=== PATIENT | female | born 2005 | race Caucasian/White ===

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

== ENCOUNTER 2023-02-08 15:45 | Emergency (ER) | payer OTHER, SELFPAY ==
[2023-02-08 15:58] VITALS: BP 96/58; PULSE 52; RESP 16; TEMP 36.4; O2SAT 100
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
== END 2023-02-08 16:58 | disposition left against medical advice (07) ==
PROVIDERS: Emergency Provider Nurse Practitioner Family
DX: R51.9 Headache, unspecified (principal); F41.9 Anxiety disorder, unspecified; F31.9 Bipolar disorder, unspecified
CPT/HCPCS: 99211; G0463

== ENCOUNTER 2023-04-15 10:45 | Emergency (ER) | payer OTHER, SELFPAY ==
--- NOTE | 2023-04-15 10:58 | ED.GENADULT ---
HPI - General Adult General Chief complaint: Nausea/Vomiting/Diarrhea Stated complaint: nausea,stomach cramping Time Seen by Provider: 04/15/23 10:58 Source: patient, RN notes reviewed and old records reviewed Mode of arrival: ambulatory Limitations: no limitations History of Present Illness HPI narrative: 17-year-old female presents to the [facility] with complaints of nausea and stomach cramps since Saturday, 2 days. Patient reports she vomited 1 time on Saturday. No vomiting since. Has had some nausea. Has taken Pepto with improvement of symptoms. Denies any actual abdominal pain. No chest pain. Thinks that she has food poisoning. Last menstrual period was 1 week ago. Related Data Home Medications Medication Instructions Recorded Confirmed escitalopram oxalate 20 mg tablet 20 mg PO DAILY 05/28/22 04/15/23 lamotrigine 100 mg tablet 100 mg PO DAILY 05/28/22 04/15/23 Allergies Allergy/AdvReac Type Severity Reaction Status Date / Time No Known Allergies Allergy Verified 02/08/23 16:01 Review of Systems Review of Systems: All systems reviewed & are unremarkable except as noted in HPI and below Constitutional: Constitutional: Reports no additional constitutional complaints Eyes: Eyes: Reports no additional eye complaints ENT: Reports system reviewed and no additional complaints, except as documented Cardiovascular: Cardiovascular: Reports no additional cardiovascular complaints, Denies chest pain and Denies dyspnea Respiratory: Respiratory: Reports no additional respiratory complaints, Denies chest congestion, Denies cough and Denies dyspnea Gastrointestinal: Gastrointestinal: Reports as per HPI, Denies abdominal pain, Reports nausea and Reports vomiting Musculoskeletal: Musculoskeletal: Reports no additional musculoskeletal complaints Integumentary/Breasts: Skin/Breast: Reports system reviewed and no additional complaints, except as docu Neurologic: Reports system reviewed and no additional complaints, except as documented Psychiatric: Psychiatric: Reports no additional psychiatric complaints Allergic/Immunologic: Allergic/Immunologic: Reports no additional allergic/immunologic complaints PMFSH Past Medical History Medical History No pertinent past medical history Comments At the time of my signature, I reviewed and agree with the nursing past medical, surgical, social, and family history. There is no relevant family history pertinent to the patient complaint. Exam Const: General: cooperative, healthy appearing, comfortable, no acute distress, well developed, alert and well nourished Nutritional Appearance: well nourished Orientation/consciousness: patient oriented x3 Limitations: no limitations HENMT: Head: normal to inspection Ears: hearing grossly normal bilaterally and external ears normal Face/Nose/Sinus: Normal external nose present, Normal nares present, Normal nasal mucous membranes and turbinates present, normal facial exam and face symmetric Face and sinus: normal facial exam and face symmetric Mouth: Yes Normal oral and palatal mucosa present, Yes lip normal and Yes moist mucous membranes Throat: posterior oropharynx normal and uvula midline Eyes: General: appearance normal, both eyes and all related structures Alignment and Position: alignment normal Periorbital: periorbital findings normal Pupils: Equal, round and reactive pupils present EOM: EOMs intact bilaterally Neck: Neck: normal visual inspection, full ROM, no lymphadenopathy and no meningeal signs Chest: Chest palpation & inspection: normal inspection of the chest Resp: Effort & Inspection: normal respiratory effort and able to speak in complete sentences Auscultation: clear to auscultation bilaterally, no crackles, no rales, no rhonchi and no wheezes Cardio: Rate: regular rate Rhythm: regular rhythm GI: GI Palp: No abdominal tenderness and Yes Soft to palpation A
[2023-04-15 11:00] VITALS: BP 90/52; PULSE 62; RESP 16; TEMP 36.4; O2SAT 100
[2023-04-15 11:01] VITALS: BP 90/52; PULSE 62; RESP 16; TEMP 36.4; O2SAT 100
== END 2023-04-15 11:13 | disposition home or self-care (01) ==
PROVIDERS: Emergency Provider Nurse Practitioner
DX: K52.9 Noninfective gastroenteritis and colitis, unspecified (principal); Z79.899 Other long term (current) drug therapy
CPT/HCPCS: 87804; 99213; G0463

== ENCOUNTER 2023-07-17 11:12 | Emergency (ER) | payer OTHER, SELFPAY ==
--- NOTE | ~2023-07-17 | US_ITS ---
EXAMINATION: US pelvic complete DATE: 07/17/2023 13:28 INDICATION: Adnexal pain TECHNIQUE: Multiple transabdominal and endovaginal sonographic images of the pelvis were obtained. COMPARISON: None. FINDINGS: The uterus measures 4.4 x 2.2 x 4.4 cm. The endometrial complex measures 6-7 mm in thickness. The ri ght ovary measures 3.4 x 2.3 x 2.3 cm. The left ovary measures 5.5 x 2.7 x 4.3 cm. There are few smal l anechoic follicles at both ovaries. There is a larger 3.0 x 2.6 cm cyst/dominant follicle at the le ft ovary. Vascular flow is identified in both ovaries on color Doppler. There is a minimal amount of likely physiologic free fluid along the right adnexa. IMPRESSION: 1. Vascular flow identified on color Doppler in both ovaries with a few bilateral Kathryn ovarian f ollicles and 3.0 cm cyst/dominant follicle at the left ovary. Reviewed, dictated and finalized at location A. COMMUNICATION TOWER TECHNICIAN IMPRESSION: 1. Vascular flow identified on color Doppler in both ovaries with a few bilater al Kathryn ovarian follicles and 3.0 cm cyst/dominant follicle at the left ov bridget.
--- NOTE | ~2023-07-17 | CT_ITS ---
EXAMINATION: CT abdomen pelvis w con DATE: 07/17/2023 14:47 INDICATION: Right lower quadrant abdominal pain. TECHNIQUE: Computed tomography (CT) of the abdomen and pelvis was performed with 100 mL Omnipaque 350 intravenous contrast. Automated exposure control and iterative reconstruction technique were employe d. The dose-length product was 216.64 mGy-cm. COMPARISON: Ultrasound pelvis 07/17/2023 FINDINGS: The visualized portions of the lung bases are clear without pneumonia or pleural effusion. The heart size is normal. No pericardial effusion. The liver, gallbladder, spleen, pancreas, adrenal glands, and kidneys are normal. There are no dilated loops of bowel. The appendix is normal. There is physiologic fluid in the pelvis. There is a 2.7 cm dominant follicle in left ovary. There are no pat hologically enlarged lymph nodes. The bones are unremarkable. IMPRESSION: 1. No etiology for the patient's symptoms. Reviewed, dictated and finalized at location E. CIPAL CONSULTANT
[2023-07-17 11:15] VITALS: BP 134/78; PULSE 73; RESP 18; TEMP 36.6; O2SAT 97
--- NOTE | 2023-07-17 11:37 | PC.NURSE ---
Per pt, last Menstrual period started 06/28, has been heavy until 07/15/23, and now is light in blood.
--- NOTE | 2023-07-17 12:03 | ED.GENADULT ---
HPI - General Adult General Chief complaint: Unspecified Stated complaint: endemetriosis hurts Time Seen by Provider: 07/17/23 12:02 History of Present Illness HPI narrative: Patient is a 17 year old female here with nausea and abdominal pain. Waxes and wanes, severe, non radiating, feels like severe abdominal cramps but has never really struggled with cramps with her periods. She had similar symptoms about 1 year ago which self resolved. She notes she had seen an OBGYN in the past who recommended workup for likely endometriosis however she moved before being able to complete this so she does not have a formal diagnoses. She has had vaginal bleeding since 06/28, waxes and wanes in strength and color, typically only has a 5 day period so this is abnormal for her. Of note in March 2022 she had a D&E at 20ish weeks, both of these episodes of pain have occurred since that time. No dysuria, no fever, no chills, no vaginal discharge, no control use for the last 1 year. No history of STI, 1 sexual partner, no concern for STI. Related Data Home Medications Medication Instructions Recorded Confirmed escitalopram oxalate 20 mg tablet 20 mg PO DAILY 05/28/22 04/15/23 lamotrigine 100 mg tablet 100 mg PO DAILY 05/28/22 04/15/23 Allergies Allergy/AdvReac Type Severity Reaction Status Date / Time No Known Allergies Allergy Verified 02/08/23 16:01 Review of Systems Review of Systems: All systems reviewed & are unremarkable except as noted in HPI and below PMFSH Past Medical History Medical History No pertinent past medical history Exam Narrative: GENERAL: Well-appearing, well-nourished, and in no acute distress. HEAD: Normocephalic, atraumatic. EYES: PERRLA and EOMI. ENT: Nares clear. Mucous membranes moist. NECK: Supple. CHEST: Clear to auscultation. No respiratory distress. HEART: Regular rate and rhythm. Normal peripheral pulses. ABDOMEN: Soft, suprapubic and RLQ tenderness, no rebound or guarding. BL CVA tenderness, nondistended. : deferred EXTREMITIES: Normal range of motion. No edema. SKIN: Warm, dry, no rash. NEURO: No focal deficits. Alert and oriented x3. PSYCH: Normal mood and affect. Course Course Emergency Course: Chart review performed. Patient here with endometriosis pain. Triage vitals within normal limits. She has a couple prior urgent care visits in our system for nausea, vomiting, last in April of this year. Patient seen and evaluated, non toxic appearing, RLQ pain and suprapubic pain, abnormal vaginal bleeding. Negative test here, unlikely ectopic . Will do UA, basic lab work, pain control, pelvic US. Should pelvic US be negative, will do CT abdomen pelvis, kidney stone and appendicitis less likely. Lab work and imaging reviewed, no leukocytosis, CMP within normal limits, normal LFTs, normal renal function. UA negative for UTI and negative. US shows cysts on bilateral ovaries, larger on the left, good flow to BL ovaries. She does have some free fluid along right adnexa. Suspect she may have had a cyst rupture on the right however will do CT abdomen pelvis to ensure appendix appears normal. Patient re-evaluated, felt better after morphine, getting more pain again, will give dose of toradol. Advised Tylenol, ibuprofen and close follow-up with primary care doctor and OBGYN. Given referrals for the on-call providers for both of these specialties should she need them. The results of pertinent diagnostic studies and exam findings were discussed. The patient?s provisional diagnosis and plan of care were discussed with the patient and present family. The patient and/or present family expressed understanding of the diagnosis and plan. The nurse was instructed to provide written instructions and appropriate follow-up information. The patient understands their need and responsibility to obtain additional follow-up as instr
[2023-07-17 12:26] LABS: Appearance Urine Clear (Clear); Bilirubin Urine Negative (Negative); Blood Urine Negative (Negative); Color Urine Yellow (Yellow); Glucose Urine UA Negative (Negative); Ketones Urine Negative (Negative); Leukocyte Esterase Ur Negative LEU/UL (Negative); Nitrate Urine Negative (Negative); Protein Urine Negative (Negative); Specific Grav Ur 1.005 (1.001-1.035); Urobilinogen Urine 0.2 mg/dL (<2.0)
[2023-07-17 12:29] LABS: Add Urine Microscopic? NO
[2023-07-17] MEDS: ONDANSETRON INJ 4 MG/2 ML VIAL IV PUSH (12:58)
[2023-07-17] MEDS: MORPHINE SULFATE (*CRX) 4 MG/ML INJ IV PUSH (12:59)
[2023-07-17 13:07] LABS: Basophils Percent Auto 0.7 % (0.2-1.2); Eosinophils Absolute Auto 0.2 K/mm3 (0-0.3); Eosinophils Percent Auto 3.9 % (0-4.4); Hematocrit 38.7 % (37.0-47.0); Hemoglobin 12.6 g/dL (12.0-15.0); Immature Granulocyte Absolute 0.01 K/mm3 (0.00-0.031); Immature Granulocyte Percent A 0.2 % (0-0.5); Lymphocytes Absolute Auto 2.11 K/mm3 (0.9-3.2); Lymphocytes Percent Auto 35.9 % (18.3-44.2); Mean Corpuscular HGB Conc 32.6 g/dl (32-36); Mean Corpuscular Hemoglobin 30.4 pg (26-34); Mean Corpuscular Volume 93.3 fl (80-100); Mean Platelet Volume 9.8 fl (7.4-10.4); Monocytes Absolute Auto 0.3 K/mm3 (0.1-0.6); Monocytes Percent Auto 5.8 % (2.6-8.5); Neutrophils Absolute Auto 3.1 K/mm3 (1.3-6.7); Neutrophils Percent Auto 53.5 % (45.5-73.1); Platelet Count Result 335 k/mm3 (150-375); Red Blood Count 4.15 M/mm3 (4.2-5.4); Red Cell Distribution Width 13.2 % (11.5-14.5); White Blood Count 5.9 K/mm3 (4.5-10.0)
[2023-07-17 13:18] LABS: Alanine Aminotransferase 20 U/L (6-35); Albumin Level 4.3 g/dL (3.7-5.6); Alkaline Phosphatase 65 U/L (45-116); Anion Gap 9 mmol/L (8-16); Aspartate Amino Transferase 29 U/L (14-36); Bilirubin,Total 1.2 mg/dL (0.2-1.3); Blood Urea Nitrogen 9 mg/dL (8-21); Calcium 9.2 mg/dL (8.9-10.7); Carbon Dioxide 24 mmol/L (22-30); Chloride 108 mmol/L (98-107); Estimated CRCL calculation 131 ml/min; Estimated Glomerular Filt Rate > 60; Glucose 91 mg/dL (65-110); Lipase 48 U/L (23-300); Potassium 4.3 mmol/L (3.4-5.0); Sodium 141 mmol/L (134-143)
[2023-07-17 15:10] VITALS: BP 110/68; PULSE 53; RESP 20; O2SAT 100
[2023-07-17] MEDS: KETOROLAC 15 MG/ML VIAL (*BKC) IV PUSH (15:51)
== END 2023-07-17 15:58 | disposition home or self-care (01) ==
PROVIDERS: Emergency Provider Student in an Organized Health Care Education/Training Program
DX: N83.02 Follicular cyst of left ovary (principal); N83.01 Follicular cyst of right ovary; N93.8 Other specified abnormal uterine and vaginal bleeding
CPT/HCPCS: 36415; 74177; 76856; 80053; 81003; 81025; 83690; 85025; 96374; 96375; 99284; J1885; J2270; J2405; Q9967

== ENCOUNTER 2023-12-06 11:24 | Outpatient (CLI) | payer OTHER, SELFPAY ==
[2023-12-06 12:07] LABS: Hematocrit 38.7 % (37.0-47.0); Hemoglobin 12.6 g/dL (12.0-15.0); Mean Corpuscular HGB Conc 32.6 g/dl (32-36); Mean Corpuscular Hemoglobin 30.8 pg (26-34); Mean Corpuscular Volume 94.6 fl (80-100); Mean Platelet Volume 10.5 fl (7.4-10.4); Platelet Count Result 253 k/mm3 (150-375); Red Blood Count 4.09 M/mm3 (4.2-5.4); Red Cell Distribution Width 13.6 % (11.5-14.5); White Blood Count 6.3 K/mm3 (4.5-10.0)
== END 2023-12-06 11:25 | disposition home or self-care (01) ==
LOC: ANHSURGERY 11:31
PROVIDERS: PCP Family Medicine; Visit Provider Student in an Organized Health Care Education/Training Program
DX: Z01.818 Encounter for other preprocedural examination (principal); R10.2 Pelvic and perineal pain; N70.11 Chronic salpingitis
CPT/HCPCS: 36415; 85027; 86850; 86900; 86901

== ENCOUNTER 2023-12-13 01:20 | Day surgery (SDC) | payer OTHER, SELFPAY ==
[2023-12-06 08:46] VITALS: BMI 19.3
--- NOTE | 2023-12-06 08:53 | PC.NURSE ---
Report to the Outpatient Waiting Room, entrance under the green pavilion located off [facility], at time _1000_ on date _[id number]_. Planned Procedure Time: _1200_. Time changes happen often and if your time is changed the preop area will call you the afternoon before. - You and your visitor will be asked to self-screen and do not enter if you have any COVID symptoms. - A mask is optional within the hospital at this time. Patients may have clear liquids (water, carbonated beverages, clear teas, apple juice) until 3 hours prior to surgery with a maximum of 20 ounces. - No food from midnight until time of surgery Take the following medications with a SIP of water the morning of surgery: ___None DO NOT STOP ANY OF YOUR OTHER PRESCRIPTION MEDICATIONS PRIOR TO SURGERY ?EXCEPT THE FOLLOWING Medications to discontinue per physician None Date to take last dose Please no make-up, nail brazilian, hairspray, perfume, deodorant, or body powder the day of surgery. No jewelry (including any body piercings) or valuables the day of surgery, leave them at home. Please take a shower or bath the night before, or the morning of, surgery with an antibacterial soap. Wear comfortable, loose fitting clothing. - Jewelry must be removed prior to entering the operating room. Rings and piercings that are not removed may be cut off. - The hospital will not accept responsibility for valuables. - Please leave all valuables, including medications, at home the day of surgery. If you are going home after surgery, a licensed car pick up driver must drive you home. - NO public transportation without another adult if you receive anesthesia. - We recommend that an adult stay with you for 24 hours following discharge. - We also recommend that you do not drive, make important decision, drink alcoholic beverages, or take any drugs that were not prescribed by your health care provider for at least 24 hours after your discharge time. Follow any additional instructions given to you from your surgeon. If you or anyone in your household have experienced Covid symptoms in the past week, please notify your surgeon or the nurse liaison at the phone number below for possible testing. Telephone instructions given to _Des___and asked if any additional questions and then verbalized understanding. Patient advised to call surgeon office or pre surgery nurse liaison [phone] if any additional questions.
[2023-12-13] VITALS (8 sets, daily range): BP systolic 96–141; BP diastolic 56–97; PULSE 60–80; RESP 14–21; TEMP 36.3–36.6; O2SAT 99–100
--- NOTE | 2023-12-13 09:31 | PM.IMHP ---
H&P: HPI History of Present Illness Date/Time: 12/13/23 09:31 Chief Complaint: pelvic pain hydrosalpinx Narrative: 18-year-old female who presents Diagnostic laparoscopy for pelvic pain and suspected left hydrosalpinx.? Patient was last seen with complaint of intermittent pelvic pain.? Patient has been dealing with pelvic pain for some time patient initially presented to the emergency room in July after an acute episode of pelvic pain.? Patient had a CT scan and a pelvic ultrasound.? Patient was known to have a left ovarian cyst.? Follow-up pelvic ultrasound in our office showed a left hydrosalpinx.? Patient was complaining of vaginal discharge at initial visit.? Patient denies any known history of STDs.? Patient does reports an elective in 2021. patient states was performed with medicine and denies any D and C or pelvic surgery. Review of Systems Cardiovascular: Cardiovascular: Denies chest pain, Denies leg edema, Denies palpitations, Denies dyspnea and Denies dyspnea on exertion Respiratory: Respiratory: Denies cough, Denies dyspnea and Denies dyspnea on exertion Gastrointestinal: Gastrointestinal: Denies abdominal pain, Denies constipation, Denies diarrhea, Denies nausea and Denies vomiting Genitourinary: Genitourinary: Denies hematuria, Denies urinary frequency, Denies dysuria, Denies pelvic pain, Denies urinary incontinence and Denies vaginal discharge Neurologic: Reports system reviewed and no additional complaints, except as documented Psychiatric: Psychiatric: Reports no additional psychiatric complaints Endocrine: Endocrine: Denies palpitations PMFSH Past Medical History Medical History No pertinent past medical history Ovarian cyst Pelvic inflammatory disease Family History Family History Mother Depression Father Family history of bipolar disorder Grandparent Family history of chronic obstructive pulmonary disease Social History Social History Smoking status: Light tobacco smoker Tobacco type: e-cigarettes/vaping Second hand tobacco smoke exposure: Yes Alcohol intake: never Substance use: current Substance use type: marijuana Other substance usage details: Medical marijuana 3 times a day. Do You Feel Safe in your Home?: Yes Lack of Transportation: No Lack of Food: Never True Current Housing: I Have Housing Concerned About Future Housing: No Difficulty Paying Gas/Electric Bills: No Currently Unemployed: No Education: Trade/Vocational Certificate Difficulty w/ Childcare or Family Care: No Living arrangements: with family Occupation/Education: occupation Gender identity (if verbalized by the patient): Female Sexual Orientation (if Verbalized by the Patient): Straight or Heterosexual Spiritual care concerns: No Meds Home Medications and Allergies Home Medications Medication Instructions Recorded Confirmed Type No Home Medications 12/06/23 12/06/23 History Allergies Allergy/AdvReac Type Severity Reaction Status Date / Time acetaminophen AdvReac Mild Nausea and Verified 12/06/23 08:46 Vomiting Exam Const: General: no acute distress Eyes: EOM: EOMs intact bilaterally Neck: Neck: supple Thyroid: thyroid normal Chest: Breast/axilla inspection: normal inspection of the breasts Breast/axilla palpation: normal palpation of the breasts, normal palpation of the axillae and no axillary lymphadenopathy Resp: Effort & Inspection: normal respiratory effort Auscultation: clear to auscultation bilaterally Cardio: Rate: regular rate Rhythm: regular rhythm GI: Inspection: non-distended GI Palp: Yes Soft to palpation, No Tenderness to palpation present (GI) and No Guarding due to palpation present (GI) Auscultation: normal bowel sounds : General: No blad
[2023-12-13] MEDS: LACTATED RINGERS 1,000 ML 30 ML IV CONT ×2 (12:00→15:26)
--- NOTE | 2023-12-13 13:13 | P.PNAN_ITS ---
Anes - Initial Pre Proc Eval Procedure: Operation Date: 12/13/23 13:30 Proposed Procedures p Diagnostic Laparoscopy, Possible Left Laparoscopic Salpingectomy, Possible Left Ovarian Cystectomy - Nixon Tejeda MD Date/Time: 12/13/23 13:13 Surgeon: Nixon Tejeda MD Pre Op Diagnosis: pelvic pain Patient Data Age: 18 Gender: F Height: 1.73 m Weight: 50.5 kg Last Vital Signs Temp 36.6 C 12/13/23 12:18 Pulse 76 12/13/23 12:18 Resp 16 12/13/23 12:18 BP 96/63 L 12/13/23 12:18 Pulse Ox 99 12/13/23 12:18 O2 Del Method Room Air 12/13/23 12:18 Allergies Allergy/AdvReac Type Severity Reaction Status Date / Time acetaminophen AdvReac Mild Nausea and Verified 12/13/23 11:51 Vomiting Home Medications Medication Instructions Recorded Confirmed Type No Home Medications 12/06/23 12/06/23 History Patient hx anesthesia problems: none Family hx anesthesia problems: none Results Review: All pre-operative results and documents have been reviewed as part of the pre- operative evaluation. [facility] Past Medical History Medical History No pertinent past medical history Ovarian cyst Pelvic inflammatory disease Family History Family History Mother Depression Father Family history of bipolar disorder Grandparent Family history of chronic obstructive pulmonary disease Social History Social History Smoking status: Light tobacco smoker Tobacco type: e-cigarettes/vaping Second hand tobacco smoke exposure: Yes Alcohol intake: never Substance use: current Substance use type: marijuana Other substance usage details: Medical marijuana 3 times a day. Do You Feel Safe in your Home?: Yes Lack of Transportation: No Lack of Food: Never True Current Housing: I Have Housing Concerned About Future Housing: No Difficulty Paying Gas/Electric Bills: No Currently Unemployed: No Education: Trade/Vocational Certificate Difficulty w/ Childcare or Family Care: No Living arrangements: with family Occupation/Education: occupation Gender identity (if verbalized by the patient): Female Sexual Orientation (if Verbalized by the Patient): Straight or Heterosexual Spiritual care concerns: No Anes - Eval Final PreProcedure Day of Procedure 12/13/23 13:13 Patient weight: normal Heart: regular rate and rhythm Lungs: clear to auscultation Airway: Mallampati scale class II and special considerations poor dentition Neurological: alert and oriented Last oral intake: >/= 8 hours ASA classification: III Emergent: no Anesthetic plan: proceed Anesthesia type and monitoring: general ETT and standard monitoring Results Review: All pre-operative results and documents have been reviewed as part of the pre- operative evaluation. Informed Consent: The patient's anesthetic plan and its attendant risks and benefits were discussed with the patient/family/POA. Questions were solicited and answers provided to the satisfaction of the patient/family/POA.
[2023-12-13] MEDS: KETOROLAC 15 MG/ML VIAL (*BKC) IV PUSH (13:23)
--- NOTE | 2023-12-13 14:23 | WPDHPUPDATE1 ---
History and Physical Update Update Date/Time: 12/13/23 14:23 History and Physical has been reviewed, including an updated exam of the patient. There are NO changes in the patient's condition. Risks, benefits, and alternatives have been discussed and questions answered. Patient agrees to proceed with procedure.
--- NOTE | 2023-12-13 14:27 | WPDHPUPDATE1 ---
History and Physical Update Update Date/Time: 12/13/23 14:27 History and Physical has been reviewed, including an updated exam of the patient. There are NO changes in the patient's condition. Risks, benefits, and alternatives have been discussed and questions answered. Patient agrees to proceed with procedure.
--- NOTE | 2023-12-13 14:29 | WPDHPUPDATE1 ---
History and Physical Update Update Date/Time: 12/13/23 14:29 History and Physical has been reviewed, including an updated exam of the patient. There are NO changes in the patient's condition. Risks, benefits, and alternatives have been discussed and questions answered. Patient agrees to proceed with procedure.
[2023-12-13] MEDS: LIDO 1%/EPINEPHRINE 1:100,000 50 ML VIAL 14 ML INFILTRATE (15:10)
--- NOTE | 2023-12-13 15:17 | P.OP_ITS ---
Procedure Note - Detailed Date of Procedure 12/13/23 Pre-op Diagnosis pelvic pain left hydrosalpinx Post-op Diagnosis Same Procedure Performed diagnostic laparoscopy, left salpingectomy Surgeon Nixon Tejeda MD Anesthesia General Indications pelvic pain hydrosalpinx on US Findings dilated left fallopian tube, enlarged fluid filled cyst at the fimbriated end of the left fallopian tube normal appearing uterus, bilateral ovaries right fallopian tube normal in appearance Description of Procedure The patient was taken to the operating room where general endotracheal anesthesia was undertaken and found to be adequate. She was then prepped and draped in the dorsal lithotomy position and placed in adjustable stirrups. A pre-operative team brief and a time out were completed. A catheter was placed to drain the bladder. Retractors were placed placed in the vagina and the cervix was identified. An acorn uterine manipulator was placed. A 5 mm skin incision was made in the umbilicus. A 5 mm optical trocar was then placed with direct camera visualization of the abdominal layers during placement. The trocar stylet was removed and the camera was used to verify intra-abdominal placement. CO2 insufflation was then connected and resumed. The pelvis was inspected. A left lower quadrant 5 mm port was placed, in addition to a right lower quadrant 5 port in the standard fashion after using local anesthetic. Pelvic survey was performed and the above findings were noted. The dilated left fallopian tube and cyst were transected. The fallopian tube was transected near the uterine corpus using the ligasure device. This transection was continued along the mesosalpinx. The fallopian tube and cyst were removed off the left ovary. The cyst was inadvertently ruptured when transecting it off of the ovarian capsule. Clear fluid was spilled from the cyst. The umbilical port site was converted to a 10-12 mm port. A laparoscopic endopouch was introduced. The specimen was placed within the bag and removed from the abdomen through the umbilical port. The surgical field was thoroughly irrigated using normal saline. All surgical beds were noted to be hemostatic. The umbilical fascial incision was re-approximated with 0-vicryl using a Erasmo- Berenice device. The abdomen was relieved of all CO2 gas. All remaining trocars were removed from the abdomen. Sponge, lap and needle counts were correct. All skin incisions were closed with 4-0 Vicryl suture subcuticularly. The uterine manipulator was removed from the uterus. Hemostasis of the cervix was noted. The urinary catheter was removed. The patient was taken out of dorsal lithotomy position. Anesthesia was reversed. The patient was taken to the PACU. Estimated Blood Loss 25 Urine Output 100 Drains No Packing No Pathology Yes (left fallopian tube and cyst) Complications No immediate complications Condition Stable Disposition PACU [facility] Billing Surgery - Charge Forward: Surgery Billing
[2023-12-13] MEDS: oxyCODONE HCL (*CRX) 5 MG TAB IR PO (16:11)
== END 2023-12-13 17:00 | disposition home or self-care (01) ==
PROVIDERS: PCP Family Medicine; Visit Provider Student in an Organized Health Care Education/Training Program
PROC: (CPT 49320; principal; 2023-12-13 13:30)
DX: N70.11 Chronic salpingitis (principal); F17.290 Nicotine dependence, other tobacco product, uncomplicated; F12.90 Cannabis use, unspecified, uncomplicated
CPT/HCPCS: 58661; 36415; 85027; 86850; 86900; 86901; 88302; A9270; J1100; J1885; J2250; J2405; J2704; J3010; J7030; J7120

== ENCOUNTER 2024-08-21 04:53 | Emergency (ER) | payer OTHER, SELFPAY ==
[2024-08-21 04:53] VITALS: BP 130/77; PULSE 99; RESP 16; TEMP 36.9; O2SAT 100
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
--- OUTSIDE RECORDS SUMMARY | 2024-08-21 04:58 | XMS_ITS | Clinical Summary ---
Author Organization [facility] Address [address] [place] [address] Care Team Providers Care Acid Loader Name Role Phone None, Provider MD Primary Care Provider Unavaila ble Allergies No known active allergies Medications lamoTRIgine 25 MG tablet Take 25 mg by mouth daily. Active ( VITAMINS) 28-0.8 MG tablet Take 1 tablet by mouth daily. 30 tablet 2 Active ondansetron (ZOFRAN-ODT) 4 MG disintegrating tablet Take 1 tablet (4 mg total) by mouth every 8 (eight) hours as needed for Nausea. 20 tablet 2 Active Social History Tobacco Use Types Packs/Day Years Used Date Smoking Tobacco: Never Smokeless Tobacco: Never Alcohol Use Standard Drinks/Week Comments Not Currently 0 (1 standard drink = 0.6 oz pur e alcohol) Comments No Sex and Gender Information Value Date Recorded Sex Assigned at Female 07/30/2021 8:29 PM ASSOCIATE PROFESSOR OF MEDICINE Legal Sex Female 5:00 PM CDT Gender Identity Female 07/30/2021 8:29 PM ASSOCIATE PROFESSOR OF MEDICINE Sexual Orientation Bisexual 07/30/2021 8: 29 PM ASSOCIATE PROFESSOR OF MEDICINE Last Filed Vital Signs Vital Sign Reading Time Taken Comments Blood Pressure 123/82 03/27/2022 4:30 AM CDT Pulse 102 03/27/2022 2:29 AM CDT Temperature 36.1 C (96.9 F) 03/27/2022 2:29 AM CDT Respiratory Rate 18 03/27/2022 2:29 AM CDT Oxygen Saturation 96% 03/27/2022 4:30 AM CDT Inhaled Oxygen Concentration - - Weight 50.8 kg (112 lb) 03/27/2022 2:29 AM CDT Height 170.2 cm (5' 7 ) 03/27/2022 2:29 AM CDT Body Mass Index 17.54 03/27/2022 2:29 AM CDT Plan of Treatment Health Maintenance Due Date Last Done Comments Annual Physical 09/14/2006 HPV Vaccines (1 - 3-dose series) 09/14/2018 Meningococcal B Vaccine (1 o f 2 - Standard) 2019 Hepatitis C 09/14/2021 DTaP, Tdap and Td Vaccines ( 1 - Tdap) 09/14/2022 Hepatitis B Vaccines (1 of 3 - 19+ 3-dose series) 09/14/2022 COVID-19 Vaccine (1 - 2023-2 5 season) 2024 Influenza Adult (#1) 2024 Meningococcal Vaccine Aged Out No willie barbie eligible based on patient's age to complete this topic Pneumococcal Vaccine: Pediat rics (0 to 5 Years) and At-Risk Patients (6 to 64 Years) Aged Out No longer eligible b ased on patient's age to complete this topic RSV Immunizations Under 20 Months Aged Out No longer eligible based on patient's age to complete this topic Additional Health Concerns Infection Onset Date Last Indicated ESBL - Extended Spectrum Bet a-lactamase Comment:03/27/22 urine (JK) 03/29/2022 03/29/2022 Insurance [employer] [facility] Care Teams Acid Loader Relationship Specialty Start Date End Date None, Provider, PCP - General 07/30/21
--- OUTSIDE RECORDS SUMMARY | 2024-08-21 04:58 | XMS_ITS | Clinical Summary ---
Author Organization [facility] Address [address] [place] [phone] Phone Care Team Providers Care Wool Handler Name Role Phone Chanda Guzmán MD Primary Care Provider [phone] Allergies No known active allergies Medications No known medications Active Problems No known active problems Social History Tobacco Use Types Packs/Day Years Used Date Smoking Tobacco: Never Passive Smoke Exposure: Never Smokeless Tobacco: Never Sexually Active Control Partners Comments Yes Comments Unknown Sex and Gender Information Value Date Recorded Sex Assigned at Female 10/09/2023 7:07 AM CDT Legal Sex Female 6:55 PM MEDICAL CENTER DIRECTOR Gender Identity Female 10/09/2023 7:07 AM CDT Sexual Orientation Something else 10/09/2023 7: 07 AM CDT Last Filed Vital Signs Vital Sign Reading Time Taken Comments Blood Pressure 96/70 08/09/2023 3:43 PM MEDICAL CENTER DIRECTOR Pulse 69 08/09/2023 3:43 PM MEDICAL CENTER DIRECTOR Temperature 36.7 C (98.1 F) 08/09/2023 3:43 PM MEDICAL CENTER DIRECTOR Respiratory Rate 20 08/09/2023 3:43 PM MEDICAL CENTER DIRECTOR Oxygen Saturation 99% 08/09/2023 3:43 PM MEDICAL CENTER DIRECTOR Inhaled Oxygen Concentration - - Weight 53.7 kg (118 lb 6.4 oz) 08/09/2023 3:43 P M MEDICAL CENTER DIRECTOR Height 172.7 cm (5' 8 ) 08/09/2023 3:43 PM MEDICAL CENTER DIRECTOR Body Mass Index 18 08/09/2023 3:43 PM MEDICAL CENTER DIRECTOR Plan of Treatment Health Maintenance Due Date Last Done Comments Hepatitis C Virus (HCV) Screening 2003 TdaP Immunization 2003 Human Papillomavirus (HPV) Immunization (1 - 3-dose series) 09/14/2018 Meningococcal B Immunization (1 of 2 - Standard) 2019 Hepatitis B Immunization (1 of 3 - 19+ 3-dose series) 09/14/2022 Influenza Immunization (#1) 2024 SARS-COV-2 Immunization ( - season) 2024 Respiratory Syncytial Virus (RSV) Immunization (Adult) (1 - 1-dose 75+ series) 09/14/2078 Meningococcal Immunization (ACWY) Aged Out No longer eligible based on patient's age to complete this topic Pneumococcal Immunization Combined Aged Out No longer eligible based on patient's age to complete this topic Rotavirus Immunization Aged Out No lo nger eligible based on patient's age to complete this topic Insurance Care Teams Wool Handler Relationship Specialty Start Date End Date Chanda Guzmán MD [address] [place] [address] PCP - General Family Medicine 08/09/23
--- OUTSIDE RECORDS SUMMARY | 2024-08-21 04:58 | XMS_ITS | Clinical Summary ---
Author Organization [facility] Address [address] [facility] [place] [address] Care Team Providers Care Shelf Drier Operator Name Role Phone No, Physician Primary Care Provider [phone] Allergies No known active allergies Medications No known medications Active Problems No known active problems Surgical History Surgery Date Site/Laterality Comments FEMUR SURGERY Medical History Medical History Date Comments Bipolar disorder (HCC) Social History Tobacco Use Types Packs/Day Years Used Date Smoking Tobacco: Never Tobacco Cessation:Counseling Given: Not Answered Alcohol Use Standard Drinks/Week Comments Yes 0 (1 standard drink = 0.6 oz pur e alcohol) one or two shots a night Hunger Vital Sign Answer Date Recorded Within the past 12 months, y ou worried that your food would run out before you got the money to buy more. Never true 09/07/19 23 Within the past 12 months, t he food you bought just didn't last and you didn't have money to get more. Never true 09/07/2022 Personal Safety Answer Date Recorded Getting School Help Needed Not on file 08/28 Comments No Sex and Gender Information Value Date Recorded Sex Assigned at Not on file Legal Sex Female 2:36 PM POISER BALANCE Gender Identity Not on file Sexual Orientation Not on file Obstetrics History Para Term AB IAB SAB Ectopic Multiple Livin g Live Births 1 1 Date Outcome GA Total Labor Labor/2nd/3rd Weight Sex Type Anes PTL Alka A1 A5 Name Clin AB Last Filed Vital Signs Vital Sign Reading Time Taken Comments Blood Pressure 114/82 10/18/2022 3:54 PM CDT Pulse 102 10/18/2022 3:54 PM CDT Temperature 36.4 C (97.6 F) 10/18/2022 3:54 PM CDT Respiratory Rate 18 08/20/2022 11:2 6 PM POISER BALANCE Oxygen Saturation 97% 10/18/2022 3:54 PM CDT Inhaled Oxygen Concentration - - Weight 59.8 kg (131 lb 12.8 oz) 10/18/2022 3:54 PM CDT Height 167.6 cm (5' 6 ) 08/20/2022 11:2 6 PM POISER BALANCE Body Mass Index 21.27 08/20/2022 11:26 PM POISER BALANCE Plan of Treatment Health Maintenance Due Date Last Done Comments Depression Screening 2003 Hepatitis C Screening 2003 DTaP/Tdap/Td Vaccine (1 - Tdap) 09/14/2014 Varicella Vaccines (1 of 2 - 13+ 2-dose series) 09/14/2016 HPV Vaccines (1 - 3-dose series) 09/14/2018 Meningococcal B Vaccine (1 o f 2 - Patient Seeks Protection) 2019 Hepatitis B Screening 09/14/2021 Regular Well Visit/Exam 18-64 09/14/2021 Chlamydia and Gonorrhea (GC/ CT) Screening 08/13/2023 08/13/2022 Influenza Vaccine (#1) 2024 Meningococcal Vaccine Aged Out No willie barbie eligible based on patient's age to complete this topic Pneumococcal vaccine <65 Aged Out No longer eligible based on patient's age to complete this topic Procedures Procedure Name Priority Date/Time Associated Diagnosis Comments N. GONORRHOEAE/C. TRACHOMATIS AMPLIFICATION Routine 08/13/2022 6:13 PM POISER BALANCE from Last 3 Months or Most Recently Relevant to Health Maintenance Results * N. gonorrhoeae/C. trachomatis Amplification Endocervical (08/13/2022 6:13 PM POISER BALANCE) C. trachomatis Not Detected Not Detected RUBEN ALEXANDER Comment:Testing performed by : [facility], [facility], [place]., [address] N. gonorrhoeae Not Detected Not Detected RUBEN ALEXANDER Comment: Testing performed by the [facility]. This assay detects Chlamydia trachomatis and Neisseria gonorrhoeae by nucleic acid amplification testing (NAAT). This test is approved by the [place] Food and Drug Administration and the performance characteristics have been verified by the laboratory. The performance characteristics of this test have not been evaluated in women or individuals less than 16 years of age. Testing performed by: [facility], [facility], [place]., [address] Endocervical (None) 08/13/19 6:13 PM POISER BALANCE 08/13/2022 7:43 PM POISER BALANCE us Sammy Gupta MD PhD LAB MICROBIOLOGY - GENERAL ORDERABLES Final Result RUBEN BJW[facility] [id number] [facility]. Department [place] [address] from Last 3 Months or Most Recently Relevant to Health Maintenance Insurance [facility] HMO [employer] [place] [employer] HMO Care Teams Shelf Drier Operator Relationship Specialty Start Date End Date No, Physician PCP - General 08/13/22
--- OUTSIDE RECORDS SUMMARY | 2024-08-21 04:58 | XMS_ITS | Referral Summary ---
Author Organization [facility] Address [address] [facility] [place] [address] Care Team Providers Care Clam Grower Name Role Phone No, Physician Primary Care Provider Allergies No known active allergies Medications No [...] on file Legal Sex Female 2:36 PM POINT OF CARE SPECIALIST Gender Identity Not on file Sexual Orientation Not on file Last Filed Vital Signs Vital Sign Reading Time Taken Comments Blood Pressure 114/82 10/18/2022 3:54 PM CDT Pulse 102 10/18/2022 3:54 PM CDT Temperature 36.4 C (97.6 F) 10/18/2022 3:54 PM CDT Respiratory Rate 18 08/20/2022 11:2 6 PM POINT OF CARE SPECIALIST Oxygen Saturation 97% 10/18/2022 3:54 PM CDT Inhaled Oxygen Concentration - - Weight 59.8 kg (131 lb 12.8 oz) 10/18/2022 3:54 PM CDT Height 167.6 cm (5' 6 ) 08/20/2022 11:2 6 PM POINT OF CARE SPECIALIST Body Mass Index 21.27 08/20/2022 11:26 PM POINT OF CARE SPECIALIST Plan of Treatment Not on file Procedures Procedure Name Priority Date/Time Associated Diagnosis Comments N. GONORRHOEAE/C. TRACHOMATIS AMPLIFICATION Routine 08/13/2022 6:13 PM POINT OF CARE SPECIALIST from Last 3 Months or Most Recently Relevant to Health Maintenance Results * N. gonorrhoeae/C. trachomatis Amplification Endocervical (08/13/2022 6:13 PM POINT OF CARE SPECIALIST) C. trachomatis Not Detected Not Detected RUBEN ALEXANDER Comment:Testing performed by : [facility], [address] [place] [address], [place]., [address] N. gonorrhoeae Not Detected Not Detected RUBEN ALEXANDER Comment: Testing performed by the [facility]. This assay detects Chlamydia trachomatis and Neisseria gonorrhoeae by nucleic acid amplification testing (NAAT). This test is approved by the [place] Food and Drug Administration and the performance characteristics have been verified by the laboratory. The performance characteristics of this test have not been evaluated in women or individuals less than 16 years of age. Testing performed by: [facility], [address] [place] [address], [place]., [address] Endocervical (None) 08/13/19 6:13 PM POINT OF CARE SPECIALIST 08/13/2022 7:43 PM POINT OF CARE SPECIALIST us Sammy Gupta MD PhD LAB MICROBIOLOGY - GENERAL ORDERABLES Final Result RUBEN ORELLANAWCH [id number] [facility]. Department of Laboratories [place], [place] [id number] from Last 3 Months or Most Recently Relevant to Health Maintenance Insurance [facility] HMO Care Teams Clam Grower Relationship Specialty Start Date End Date No, Physician PCP - General 08/13/22
--- OUTSIDE RECORDS SUMMARY | 2024-08-21 04:58 | XMS_ITS | Referral Summary ---
Author Organization [facility] Address [address] [place] [address] Care Team Providers Care Academic Support Center Director Name Role Phone Armando Roberts MD Primary Care Provider Armando Roberts MD Unavailable [phone] Jorge Schulz MD Unavailable [phone] Source Comments [facility],non-owned Affiliates and Associated Physician Practices is amultiple site organization consisting of ambulatory clinics and hospital sitesin [place], [place], [place] and [place]. This disclosure is being madepursuant to the Care Everywhere program and may not contain all information available regarding this patient. Last updated 18.[facility] Allergies No known active allergies Medications * Be aware that medications may not be up to date on this document. Alwaysverify current medications with the patient. Medication Sig Dispensed Refills Start Date End Date Status QUEtiapine (SEROQUEL) 400 MG tablet Take 400 mg by mouth 2 times daily Active Escitalopram Oxalate (LEXAPRO PO) Active OXcarbazepine (TRILEPTAL) 150 MG tablet Take 150 mg by mouth 2 times daily Active escitalopram (LEXAPRO) 10 MG tablet Take 10 mg by mouth once daily Active divalproex DR (DEPAKOTE) 250 MG tablet Take by mouth 2 times daily Active QUEtiapine (SEROQUEL) 400 MG tablet Take 400 mg by mouth 2 times daily Active ibuprofen (MOTRIN) 400 MG tablet Take 1 tablet by mouth every 6 hours as needed for Pain 30 tablet 05/22/2019 Active acetaminophen (TYLENOL) 325 MG tablet Take 2 tablets by mouth every 4 hours as needed for Fever or Pain Maximum allowable Acetaminophen amount = 4 Grams (4000 mg) / 24 hours. 30 tablet 05/22/2019 Active Active Problems Problem Noted Date Diagnosed Date [...] Comments Blood Pressure 114/73 08/20/2022 8:35 PM PRESSROOM SUPERVISOR Pulse 67 08/20/2022 8:35 PM PRESSROOM SUPERVISOR Temperature 36.3 C (97.4 F) 08/20/2022 8:35 PM PRESSROOM SUPERVISOR Respiratory Rate 18 08/20/2022 8:35 PM PRESSROOM SUPERVISOR Oxygen Saturation 100% 08/20/2022 8:35 PM PRESSROOM SUPERVISOR Inhaled Oxygen Concentration - - Weight 57.6 kg (127 lb) 04/25/2018 12:00 PM CDT Height 172.7 cm (5' 8 ) 04/25/2018 12:00 PM CDT Body Mass Index 19.31 04/25/2018 12:00 PM CDT Plan of Treatment Not on file ENA,JAMILA Personal/Family [address] [place] [address] ENA,JAMILA Personal/Family [address] [place] [address] ENA,JAMILA Personal/Family [address] [place] [address] MARCOS BRANHAM Third Alliance Party Liability Mother 07/27/1979 [address] [place] [address] MARCOS BRANHAM Personal/Family Mother 1979 [address] [place] [address] MARCOS BRANHAM Personal/Family Other [address] [place] [address] Care Teams Academic Support Center Director Relationship Specialty Start Date End Date Armando Roberts MD [address] [place] [address] PCP - General 06/09/19 Armando Roberts MD [address] [place] [address] Internal Medicine 06/09/19 Jorge Schulz MD [address] [place] [address] Orthopedic Surgery 06/08/19
--- OUTSIDE RECORDS SUMMARY | 2024-08-21 04:58 | XMS_ITS | Clinical Summary ---
Author Organization [facility] Address [address] [place] [address] Care Team Providers Care Pantograph I Engraver Name Role Phone Armando Roberts MD Primary Care Provider [phone] Armando Roberts MD Unavailable [phone] Jorge Schulz MD Unavailable [phone] Source Comments [facility],non-owned Affiliates and Associated Physician Practices is amultiple site organization consisting of ambulatory clinics and hospital sitesin [place], [place], [place] and [place]. This disclosure is being madepursuant to the Care Everywhere program and may not contain all information available regarding this patient. 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 Pulse 67 08/20/2022 8:35 PM MATERNITY FLOOR SUPERVISOR Temperature 36.3 C (97.4 F) 08/20/2022 8:35 PM MATERNITY FLOOR SUPERVISOR Respiratory Rate 18 08/20/2022 8:35 PM MATERNITY FLOOR SUPERVISOR Oxygen Saturation 100% 08/20/2022 8:35 PM MATERNITY FLOOR SUPERVISOR Inhaled Oxygen Concentration - - Weight 57.6 kg (127 lb) 04/25/2018 12:00 PM CDT Height 172.7 cm (5' 8 ) 04/25/2018 12:00 PM CDT Body Mass Index 19.31 04/25/2018 12:00 PM CDT Plan of Treatment Health Maintenance Due Date Last Done Comments HIV SCREENING 09/14/2018 HPV VACCINE (1 - 3-dose series) 09/14/2018 CHLAMYDIA/GONORRHEA SCREENING 2019 MENINGOCOCCAL (Group B) VACC INE (1 of 2 - Standard) 2019 HEPATITIS C SCREENING 09/10/2021 DTAP/TDAP/TD VACCINES (1 - Tdap) 09/14/2022 HEPATITIS B VACCINE (1 of 3 - 19+ 3-dose series) 09/14/2022 PNEUMOCOCCAL VACCINE (1 of 2 - PCV) 09/14/2022 COVID-19 VACCINE (2023-2 5 season) 2024 INFLUENZA VACCINE (#1) 2024 DEPRESSION SCREENING 07/15/2024 ZOSTER VACCINE (1 of 2) 09/14/2053 HIB VACCINE Aged Out No longer eligi ble based on patient's age to complete this topic MENINGOCOCCAL VACCINE Aged Out No willie barbie eligible based on patient's age to complete this topic Care Teams Pantograph I Engraver Relationship Specialty Start Date End Date Armando Roberts MD [address] [place] [address] PCP - General 06/09/19 Armando Roberts MD [address] [place] [address] Internal Medicine 06/09/19 Jorge Schulz MD [address] [place] [address] Orthopedic Surgery 06/08/19
--- NOTE | 2024-08-21 05:10 | ED_ITS ---
HPI - Dental/Oral General Chief complaint: Dental/Oral Stated complaint: dental pain Time Seen by Provider: 08/21/24 04:59 Source: patient Mode of arrival: ambulatory Limitations: no limitations History of Present Illness HPI Narrative: this is a 18-year-old female who presents with tooth pain surrounding gum inflammation with no fever chills no chest pain or shortness of breath. Complaint: tooth pain Teeth map: 2 1. Tooth decay with surrounding gum inflammation Onset (ago): hour(s) Duration: constant Severity: mild Related Data Allergies Allergy/AdvReac Type Severity Reaction Status Date / Time acetaminophen AdvReac Mild Nausea and Verified 08/21/24 04:58 Vomiting Review of Systems 2 Review of Systems: All systems reviewed & are unremarkable except as noted in HPI and below PMFSH Past Medical History Medical History No pertinent past medical history Pelvic inflammatory disease Ovarian cyst Surgical History Surgical History History of hysteroscopy diagnostic laparoscopy, left salpingectomy Family History Family History Mother Depression Father Family history of bipolar disorder Grandparent Family history of chronic obstructive pulmonary disease Social History Social History Smoking status: Light tobacco smoker Tobacco type: e-cigarettes/vaping Second hand tobacco smoke exposure: Yes Alcohol intake: never Substance use: current Substance use type: marijuana Other substance usage details: Medical marijuana 3 times a day. Do You Feel Safe in your Home?: Yes Lack of Transportation: No Lack of Food: Never True Current Housing: I Have Housing Concerned About Future Housing: No Difficulty Paying Gas/Electric Bills: No Currently Unemployed: No Education: Trade/Vocational Certificate Difficulty w/ Childcare or Family Care: No Living arrangements: with family Occupation/Education: occupation Gender identity (if verbalized by the patient): Female Sexual Orientation (if Verbalized by the Patient): Straight or Heterosexual Spiritual care concerns: No Exam 2 Const: General: healthy appearing Nutritional Appearance: well nourished Orientation/consciousness: patient oriented x3 Limitations: no limitations HENMT: Head: normal to inspection Neck: Neck: normal visual inspection, no lymphadenopathy and no meningeal signs Chest: Chest palpation & inspection: normal inspection of the chest Resp: Effort & Inspection: normal respiratory effort Auscultation: clear to auscultation bilaterally Cardio: Rate: regular rate Rhythm: regular rhythm GI: GI Palp: Yes Soft to palpation Course Course Emergency Course: The pain will send pain medication and antibiotics patient's local pharmacy. Vital Signs Vital signs: Vital Signs Temperature 36.9 C 08/21/24 04:53 Pulse Rate 99 08/21/24 04:53 Respiratory Rate 16 08/21/24 04:53 Blood Pressure 130/77 08/21/24 04:53 Pulse Oximetry 100 08/21/24 04:53 Oxygen Delivery Room Air 08/21/24 04:53 Temperature 36.9 C 08/21/24 04:53 Pulse Rate 99 08/21/24 04:53 Respiratory Rate 16 08/21/24 04:53 Blood Pressure 130/77 08/21/24 04:53 Pulse Oximetry 100 08/21/24 04:53 Oxygen Delivery Room Air 08/21/24 04:53 Critical Care Time Critical Care Time Critical Care Time: No Discharge Plan Discharge Clinical Impression: Toothache Patient Disposition: Home, Self-Care Condition: Stable Instructions: Antibiotic Form, Dental Abscess (ED), Toothache (ED) Additional Instructions: Take medication as prescribed and follow up with primary if symptoms persist or worsen. Patient Language: Serbian Prescriptions: New naproxen 500 mg tablet 500 mg PO BID PRN (Reason: pain) Qty: 14 0RF amoxicillin 500 mg tablet 500 mg PO TID Qty: 30 0RF Follow-up/Referrals: Heidy,Chanda Jones MD [Primary Care Provider] - Stand Alone Forms: Work/School Release IP Time of Disposition: 05:
== END 2024-08-21 05:20 | disposition home or self-care (01) ==
PROVIDERS: Emergency Provider Emergency Medicine; PCP Family Medicine
DX: K08.89 Other specified disorders of teeth and supporting structures (principal); F17.290 Nicotine dependence, other tobacco product, uncomplicated
CPT/HCPCS: 99283